=== PATIENT | male | born 1980 | race Caucasian/White ===

== ENCOUNTER 2024-01-28 04:55 | Emergency (ER) | payer OTHER ==
[~2024-01-28] VITALS: Ht 185.4 cm; Wt 77.6 kg
[2024-01-28] MEDS ORDERED: IBUP-1022 PO (07:45)
[2024-01-28] MEDS ORDERED: ACET325C5 PO (07:45)
[2024-01-28] MEDS: NORCO, ANEXSIA 5/325MG TABLET (HYDROcodone/ACETAMINOPHEN) PO ONE (08:04)
[2024-01-28 08:39] VITALS: BP 130/84; TEMP 98.1; O2SAT 98
== END 2024-01-28 08:41 | disposition home or self-care (01) ==
LOC: M ED 04:55
DX: K02.9 Dental caries, unspecified (principal); F17.200 Nicotine dependence, unspecified, uncomplicated

== ENCOUNTER 2024-11-22 10:42 | Emergency (ER) | payer OTHER, SELFPAY ==
[~2024-11-22] VITALS: Ht 185.4 cm; Wt 81.5 kg
[~2024-11-22 10:42] MED LIST: ACET325C5 PO; IBUP-1022 PO
[2024-11-22] MEDS ORDERED: IBUP-1022 PO (12:18)
[2024-11-22] MEDS ORDERED: AMOX875T2 PO (12:18)
[2024-11-22] MEDS: AUGMENTIN 875 MG TAB PO ONE (12:27)
[2024-11-22] MEDS: IBUPROFEN 600MG TAB PO ONE (12:27)
[2024-11-22 12:29] VITALS: BP 166/97; TEMP 97.8; O2SAT 99
== END 2024-11-22 12:31 | disposition home or self-care (01) ==
LOC: M ED 10:42
DX: K04.7 Periapical abscess without sinus (principal); K02.9 Dental caries, unspecified; K08.89 Other specified disorders of teeth and supporting structures